=== PATIENT | female | born 1945 | race Caucasian/White ===

== ENCOUNTER → 2017-01-03 | Outpatient (CLI) | payer MEDICARE, OTHER ==
[~2017-01-03] MED LIST: CINN1POW MC; CYAN1TAB44 PO; INSULIN ASPART; INSULIN GLARGINE; NIFE30TA10 PO; OXYC-26 PO; PRAV40TA3 PO; SERT50TA12 PO; VITAD1000 PO
== END | disposition home or self-care (01) ==
LOC: RADPV 11:09
PROVIDERS: ATTEND Legal Medicine
DX: M47.892 Other spondylosis, cervical region (principal); M48.02 Spinal stenosis, cervical region; M25.78 Osteophyte, vertebrae; S13.150A Subluxation of C4/C5 cervical vertebrae, initial encounter
CPT/HCPCS: 72040

== ENCOUNTER → 2017-01-10 | Outpatient (CLI) | payer MEDICARE, OTHER | END | disposition home or self-care (01) | LOC: RADMN 10:46 | PROVIDERS: ATTEND Legal Medicine | DX: M48.02 Spinal stenosis, cervical region (principal); M53.82 Other specified dorsopathies, cervical region; M43.12 Spondylolisthesis, cervical region; M25.78 Osteophyte, vertebrae; M12.88 Other specific arthropathies, not elsewhere classified, other specified site | CPT/HCPCS: 72141 ==

== ENCOUNTER → 2018-03-27 | Outpatient (CLI) | payer MEDICARE, OTHER | END | disposition home or self-care (01) | LOC: RADPV 11:08 | PROVIDERS: ATTEND Legal Medicine | DX: M17.0 Bilateral primary osteoarthritis of knee (principal); Z98.890 Other specified postprocedural states ==

== ENCOUNTER → 2018-11-25 | Outpatient (CLI) | payer MEDICARE, OTHER | END | disposition home or self-care (01) | LOC: RADPV 11:46 | PROVIDERS: ATTEND Legal Medicine | DX: M16.0 Bilateral primary osteoarthritis of hip (principal) | CPT/HCPCS: 73521 ==

== ENCOUNTER → 2019-10-14 | Outpatient (CLI) | payer MEDICARE, OTHER ==
[~2019-10-14] MED LIST changes: +CHOL100018 PO; -VITAD1000 PO
== END | disposition home or self-care (01) ==
LOC: RADPV 12:58
PROVIDERS: ATTEND Legal Medicine
DX: M47.816 Spondylosis without myelopathy or radiculopathy, lumbar region (principal); I70.0 Atherosclerosis of aorta; Z90.49 Acquired absence of other specified parts of digestive tract
CPT/HCPCS: 72100

== ENCOUNTER → 2021-07-20 | Emergency (ER) | payer MEDICARE, OTHER ==
[~2021-07-20] VITALS: Ht 157.5 cm; Wt 110.0 kg
[~2021-07-20] MED LIST changes: +MAGNESIUM SULFATE 2 GM/WATER 50 ML IV ONE; +SERT-158 PO; -SERT50TA12 PO; +SODIUM CHLORIDE 0.9% 1,000 ML IV ONE
[2021-07-20 15:08] LABS: GLUCOSE,POINT OF CARE 164 MG/DL (70-110)
[2021-07-20 15:14] LABS: BASOPHILS % (AUTO) 0.8 % (0.0-2.0); EOSINOPHILS % (AUTO) 2.1 % (1.0-6.0); HEMATOCRIT 36.9 % (36-46); HEMOGLOBIN 12.4 g/dL (12.0-16.0); MEAN CORPUSCULAR HEMOGLOBIN 32.7 pg (26.0-34.0); MEAN CORPUSCULAR HGB CONC 33.5 G/dL (31.0-37.0); MEAN CORPUSCULAR VOLUME 98 fL (80-100); MONOCYTES # (AUTO) 0.5 K/uL (0.1-1.0); NEUTROPHILS # (AUTO) 4.8 K/uL (1.8-7.7); NEUTROPHILS % (AUTO) 74.1 % (40.0-70.0); PLATELET COUNT (AUTO) 177 K/uL (150-450); RED BLOOD CELL COUNT(AUTO) 3.78 MIL/uL (4.00-5.20); RED CELL DISTRIBUTION WIDTH 13.4 % (11.5-14.5)
[2021-07-20 15:19] LABS: CALCIUM, TOTAL 6.9 mg/dL (8.8-10.5); CREATININE 3.53 mg/dL (0.60-1.30); POTASSIUM 3.7 mmol/L (3.5-5.1)
[2021-07-20 15:25] LABS: ALBUMIN 3.5 g/dL (3.4-5.0)
[2021-07-20 15:52] LABS: COVID AG,FIA SOURCE NASOPHARYNGEAL
[2021-07-20 18:51] VITALS: BP 122/66
== END | disposition home or self-care (01) ==
LOC: EMS 14:35
DX: E86.0 Dehydration (principal); N17.9 Acute kidney failure, unspecified; E83.42 Hypomagnesemia; F32.9 Major depressive disorder, single episode, unspecified; E11.9 Type 2 diabetes mellitus without complications; K21.9 Gastro-esophageal reflux disease without esophagitis; E78.00 Pure hypercholesterolemia, unspecified; I10 Essential (primary) hypertension; Z20.822 Contact with and (suspected) exposure to COVID-19; Z90.710 Acquired absence of both cervix and uterus
CPT/HCPCS: 36415; 80053; 82962; 83735; 85025; 87426; 93005; 96361; 96365; 96366; 99284; J3475